=== PATIENT | female | born 1945 | race Caucasian/White ===

== ENCOUNTER 2025-02-23 14:09 | Emergency (ER) | payer MEDICARE, SELFPAY ==
[2025-02-23 14:12] VITALS: BP 165/112; PULSE 57; PULSE 61; RESP 17; RESP 19; TEMP 36.8; O2SAT 100; O2SAT 99; BMI 33.9
[2025-02-23 14:19] VITALS: TEMP 36.8
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
[2025-02-23 15:40] LABS: Hematocrit 36.1 % (37-47); Hemoglobin 12.1 g/dL (12.0-15.0); Immature Granulocytes Count 0.040 X10^3/uL (0.0-0.0); Mean Corp Hgb Conc 33.5 g/dL (32-36); Mean Corpuscular Volume 95.0 fL (81-99); Mean Platelet Vol. 9.4 fl (6.2-12.0); NRBC Flagged by Analyzer 0 % (0-5); Platelet Count 154 K/mm3 (150-450); RBC Distribution Width CV 13.8 % (11.6-14.6); RBC Distribution Width SD 48.3 fl (35.1-43.9); Red Blood Count 3.80 M/mm3 (4.2-5.4); White Blood Count 6.5 K/mm3 (4.4-11.0)
[2025-02-23 16:11] VITALS: BP 189/92; PULSE 82; RESP 16; O2SAT 100
[2025-02-23 16:19] LABS: AST(SGOT) 27 U/L (<=31); Alanine Aminotransfer ALT/SGPT 15 U/L (<=34); Albumin, Serum 4.2 g/dL (3.4-4.8); Alkaline Phosphatase 53 U/L (35-104); Anion Gap 14 (5-15); BUN 20 mg/dL (4-19); BUN/Creat Ratio 16.2 RATIO (10-20); Calcium,Total 9.7 mg/dL (7.6-11.0); Carbon Dioxide 22.0 mmol/L (21.0-32.0); Chloride 99 mmol/L (98-108); Estimated Creatinine Clearance 45.02 ml/min (50-250); Globulin 2.8 g/dL (2.2-4.2); Glucose 100 mg/dL (70-99); Potassium 4.3 mmol/L (3.3-5.1)
[2025-02-23 18:00] VITALS: BP 153/103; PULSE 84; RESP 16; TEMP 36.7; O2SAT 100
--- NOTE | 2025-02-23 18:01 | PCA ---
RADHA CALLED @ [phone] WITH A BED, H-8 [id number]. I CALLED PHYSICIANS THEY WILL BE @[phone] TO PICK HER UP HERE
[2025-02-23 18:12] VITALS: BP 153/103; PULSE 82; RESP 16; TEMP 36.7; O2SAT 100
== END 2025-02-23 18:36 | disposition short-term general hospital (02) ==
PROVIDERS: Emergency Provider Emergency Medicine; Visit Provider Emergency Medicine
DX: S36.116A Major laceration of liver, initial encounter (principal); E78.5 Hyperlipidemia, unspecified; S20.211A Contusion of right front wall of thorax, initial encounter; I10 Essential (primary) hypertension; Z79.899 Other long term (current) drug therapy; V44.6XXA Car passenger injured in collision with heavy transport vehicle or bus in traffic accident, initial encounter
CPT/HCPCS: 70450; 71260; 72125; 74177; 80053; 85025; 96374; 96375; 96376; 99285; Q9967; A4216; J2405